=== PATIENT | male | born 1990 | race Caucasian/White ===

== ENCOUNTER 2016-03-25 09:55 | Emergency (ER) | payer SELFPAY ==
[2016-03-25 11:00] VITALS: BP 156/108
--- NOTE | 2016-03-25 11:59 | UC ---
[facility] HPI - HPI Summary HPI Summary: complaint of lower left jaw pain and swelling that started approx 7 days ago lower left gum has been swollen occaiosnal pain in back teeth denies fever took some aleve for pain with some relief left ear feels pressurizied an d intetrmittently painful - History of Current Complaint Chief Complaint: UCGeneralIllness Stated Complaint: SWOLLEN JAW EAR PAIN Time Seen by Provider: 03/25/16 11:53 Hx Obtained From: Patient - Allergies/Home Medications Allergies/Adverse Reactions: Allergies Allergy/AdvReac Type Severity Reaction Status Date / Time No Known Allergies Allergy Verified 03/25/16 11:00 PMH/Surg Hx/FS Hx/Imm Hx Previously Healthy: Yes Endocrine History Of: Denies: Diabetes, Thyroid Disease Cardiovascular History Of: Reports: Deep Vein Thrombosis Denies: Cardiac Disorders, Hypertension Respiratory History Of: Denies: COPD, Asthma GI/ History Of: Denies: Ulcer - Surgical History Surgical History: Yes Surgery Procedure, Year, and Place: adenoids removed - Family History Known Family History: Negative: Cardiac Disease, Hypertension, Diabetes - Social History Occupation: Employed Full-time Alcohol Use: Occasionally Substance Use Type: None Smoking Status (MU): Never Smoked Tobacco Review of Systems Constitutional: Negative, Fever Eyes: Negative ENT: Dental Pain Respiratory: Negative Cardiovascular: Negative Gastrointestinal: Negative Genitourinary: Negative Motor: Negative Neurovascular: Negative Musculoskeletal: Negative Neurological: Negative Psychological: Negative All Other Systems Reviewed And Are Negative: Yes Physical Exam Triage Information Reviewed: Yes Appearance: No Pain Distress, Well-Nourished Vital Signs: Initial Vital Signs Temp 97.9 F 03/25/16 10:55 Pulse 96 03/25/16 10:55 Resp 20 03/25/16 10:55 BP 156/108 03/25/16 10:55 Pulse Ox 99 03/25/16 10:55 Vital Signs Reviewed: Yes Eyes: Positive: Conjunctiva Clear ENT: Positive: Pharynx normal, TMs normal. Negative: Nasal congestion Dental: Positive: Abscess @ - between ,18 Neck: Positive: No Lymphadenopathy Respiratory: Positive: Lungs clear, Normal breath sounds, No respiratory distress Cardiovascular: Positive: RRR, No Murmur Neurological: Positive: Alert Psychological Exam: Normal Skin Exam: Normal Dental Complaint Course/Dx - Course Course Of Treatment: exam completed - Differential Dx/Diagnosis Differential Diagnosis/Dx: Dental Abscess, Dental Caries, Fractured Tooth Provider Diagnoses: dental abscess- 18,17, elevated blood pressure Discharge - Discharge Plan Condition: Stable Disposition: HOME Prescriptions: Amoxicillin CAP* 500 mg PO Q12H #20 cap Patient Education Materials: Dental Abscess (ED), Hypertension (ED) Referrals: Kartik Brito MD [Primary Care Provider] - Additional Instructions: please call Dr Collins to discuss your elevated blood pressure Please take antibiotic as directed. Increase fluids and rest Take acetaminophen or ibuprofen for fever or pain please call dentist for followup care. Please review your discharge instructions. If your symptoms do not improve please call your primary care provider or return to urgent care.
== END 2016-03-25 12:05 | disposition home or self-care (01) ==
LOC: UCEAST 09:55
DX: K04.7 Periapical abscess without sinus (principal); I10 Essential (primary) hypertension
CPT/HCPCS: 99212; G0463

== ENCOUNTER 2017-04-01 17:35 | Emergency (ER) | payer SELFPAY ==
--- NOTE | 2017-04-01 19:02 | UC ---
Ear Complaint HPI - HPI Summary HPI Summary: left ear feels clogged tried to flush it himself- - History of Current Complaint Chief Complaint: UCEar Stated Complaint: EAR COMPLAINT Time Seen by Provider: 04/01/17 18:11 Hx Obtained From: Patient Onset/Duration: Gradual Onset, Lasting Days, Still Present Severity Initially: Moderate Severity Currently: Moderate Associated Signs/Symptoms: Positive: Hearing Loss - Allergies/Home Medications Allergies/Adverse Reactions: Allergies Allergy/AdvReac Type Severity Reaction Status Date / Time No Known Allergies Allergy Verified 04/01/17 17:49 PMH/Surg Hx/FS Hx/Imm Hx Previously Healthy: Yes - Surgical History Surgical History: Yes Surgery Procedure, Year, and Place: adenoids removed - Family History Known Family History: Negative: Cardiac Disease, Hypertension, Diabetes - Social History Occupation: Employed Full-time Lives: With Family Alcohol Use: Occasionally Substance Use Type: None Smoking Status (MU): Never Smoked Tobacco Review of Systems Constitutional: Negative Skin: Negative Eyes: Negative ENT: Negative, Ear Ache - left Respiratory: Negative Cardiovascular: Negative Gastrointestinal: Negative Genitourinary: Negative Motor: Negative Neurovascular: Negative Musculoskeletal: Negative Neurological: Negative Psychological: Negative Is Patient Immunocompromised?: No All Other Systems Reviewed And Are Negative: Yes Physical Exam Triage Information Reviewed: Yes Appearance: Well-Appearing, No Pain Distress, Well-Nourished Vital Signs: Initial Vital Signs Temp 97.0 F 04/01/17 17:44 Pulse 105 04/01/17 17:44 Resp 16 04/01/17 17:44 Pulse Ox 100 04/01/17 17:44 Vital Signs Reviewed: Yes Eye Exam: Normal Eyes: Positive: Conjunctiva Clear ENT Exam: Normal ENT: Positive: Normal ENT inspection, Hearing grossly normal, Pharynx normal, TMs normal - right, Other - left ear with cerumen impaction. Negative: Nasal congestion, Tonsillar swelling, Tonsillar exudate, Trismus, Muffled voice, Hoarse voice, Dental tenderness, Sinus tenderness Dental Exam: Normal Neck exam: Normal Neck: Positive: Supple, Nontender Respiratory Exam: Normal Respiratory: Positive: Chest non-tender, No respiratory distress, No accessory muscle use Cardiovascular Exam: Normal Cardiovascular: Positive: RRR, Brisk Capillary Refill Musculoskeletal Exam: Normal Musculoskeletal: Positive: Strength Intact, ROM Intact, No Edema Neurological Exam: Normal Neurological: Positive: Alert, Muscle Tone Normal Psychological Exam: Normal Skin Exam: Normal Re-Evaluation - Re-Evaluation First Eval Change: Improved - ear flushed by rn-TM WNL after flushing Ear Complaint Course/Dx - Course Course Of Treatment: Avoid soap and q tips in ears follow with pcp prn - Differential Dx/Diagnosis Provider Diagnoses: left cerumen impaction resolved Discharge - Discharge Plan Condition: Stable Disposition: HOME Patient Education Materials: Cerumen Impaction (ED), Hypertension (ED) Referrals: Kartik Brito MD [Primary Care Provider] - 2 Weeks
[2017-04-01 19:05] VITALS: BP 141/98
== END 2017-04-01 19:10 | disposition home or self-care (01) ==
LOC: UCEAST 17:35
DX: H61.22 Impacted cerumen, left ear (principal)
CPT/HCPCS: 69210; 99211; 99212; G0463

== ENCOUNTER 2017-08-26 13:44 | Emergency (ER) | payer SELFPAY ==
[2017-08-26 13:53] VITALS: BP 153/103
--- NOTE | 2017-08-26 15:08 | UC ---
General HPI - HPI Summary HPI Summary: PT HERE REQUESTING LYME TESTING. HAD A TICK BITE BACK OF RIGHT LEG ABOUT A MONTH AGO. PAST 5 DAYS HAS BEEN FEELING FATIGUED AND HAS HAD NIGHT SWEATS, SUBJECTIVE FEVER, MARRERO, DIFFUSE JOINT/MUSCLE ACHES AND INTERMITTENT NAUSEA. - History of Current Complaint Chief Complaint: UCGeneralIllness Stated Complaint: JOINT PAIN Time Seen by Provider: 08/26/17 14:50 Hx Obtained From: Patient Onset/Duration: Gradual Onset, Lasting Days, Still Present Timing: Constant Onset Severity: Moderate Current Severity: Moderate Pain Intensity: 5 - Allergy/Home Medications Allergies/Adverse Reactions: Allergies Allergy/AdvReac Type Severity Reaction Status Date / Time No Known Allergies Allergy Verified 08/26/17 13:54 Home Medications: Home Medications Acetaminophen TAB* [Tylenol TAB*] 1,000 mg PO Q4H PRN 08/26/17 [History Confirmed 08/26/17] PMH/Surg Hx/FS Hx/Imm Hx Previously Healthy: Yes - Surgical History Surgical History: Yes Surgery Procedure, Year, and Place: adenoids removed - Family History Known Family History: Negative: Cardiac Disease, Hypertension, Diabetes - Social History Alcohol Use: Occasionally Substance Use Type: None Smoking Status (MU): Never Smoked Tobacco Review of Systems Constitutional: Fever, Chills, Fatigue Respiratory: Negative Cardiovascular: Negative Gastrointestinal: Nausea Musculoskeletal: Arthralgia, Myalgia Neurological: Headache All Other Systems Reviewed And Are Negative: Yes Physical Exam Triage Information Reviewed: Yes Appearance: Well-Appearing, No Pain Distress, Well-Nourished Vital Signs: Initial Vital Signs Temp 98.7 F 08/26/17 13:48 Pulse 104 08/26/17 13:48 Resp 16 08/26/17 13:48 BP 153/103 08/26/17 13:48 Pulse Ox 98 08/26/17 13:48 Vital Signs Reviewed: Yes Eyes: Positive: Conjunctiva Clear ENT: Positive: Hearing grossly normal, Pharynx normal, TMs normal Neck: Positive: Supple, Nontender, No Lymphadenopathy Respiratory Exam: Normal Cardiovascular Exam: Normal Abdomen Description: Positive: Soft Musculoskeletal: Positive: ROM Intact, No Edema Neurological: Positive: Alert Psychological: Positive: Age Appropriate Behavior Skin: Negative: rashes Course/Dx - Differential Dx - Multi-Symptom Provider Diagnoses: MALAISE/ARTHRALGIA/MYALGIA Discharge - Sign-Out/Discharge Documenting (check all that apply): Discharge/Admit/Transfer - Discharge Plan Condition: Stable Disposition: HOME Patient Education Materials: Fatigue (ED) Referrals: Kartik Brito MD [Primary Care Provider] - 2 Weeks Additional Instructions: POSSIBLE LYME DISEASE: You are suspected of having Lyme disease. Further testing may be necessary to confirm the diagnosis. Lyme disease is an infection spread through the bite of a deer tick. Symptoms include rash, fever, fatigue, joint swelling, and aches. Lyme disease can be treated with antibiotics. It is important that you take the entire course of medication. Call the physician if you develop severe headache, stiff neck, paralysis or "drooping" of either side of the face, or a worsening of any other symptom. The majority of patients with early Lyme disease who receive appropriate antibiotic therapy have complete resolution of the signs and symptoms of infection within 20 days and, in one trial, erythema migrans (the rash) and its associated symptoms resolved in a mean of five to six days. Patients who are more systemically ill at the beginning of treatment may take longer to recover. Some patients have mild subjective symptoms, such as headache, musculoskeletal pain, arthralgia, or fatigue, that persist for weeks to months after treatment. These subjective findings often resolve spontaneously, usually within six months , without further antibiotic therapy; they are not due to ongoing active Lyme disease. Almost all patients who have a satisfactory response to antibiotic therapy do well over the laborer prestressed concrete. LABS DRAWN TODAY INCLUDE BLOOD COUNT, METABOLIC PANEL AND LYME SEROLOGY. WE WILL CALL YOU WITH ANY ABNORMAL RESULTS. YOU HAVE OPTED TO HOLD OFF ON TREATMENT UNTIL RESULTS RETURN WHICH IS REASONABLE. YOUR BLOOD PRESSURE WAS ELEVATED TODAY (153/103). THIS MAY BE DUE TO YOUR ACUTE CONDITION. MONITOR AND FOLLOW-UP WITH YOUR PCP WITHIN 4 WEEKS IF IT HAS NOT RETURNED TO NORMAL. - Billing Disposition and Condition Condition: STABLE Disposition: Home
[2017-08-26 18:52] LABS: ABS Basophils 0.1 10^3/ul (0-0.2); ABS Eosinophils 0.1 10^3/ul (0-0.6); ABS Lymphocytes 1.3 10^3/ul (1.0-4.8); ABS Monocytes 1.3 10^3/ul (0-0.8); ABS Neutrophils 6.6 10^3/ul (1.5-7.7); ABS Nucleated RBC 0 10^3/ul; Eosinophil % 0.9 % (0-6); Hematocrit 48 % (42-52); Hemoglobin 16.8 g/dl (14.0-18.0); Mean Corpuscular HGB Conc 35 g/dl (31-36); Mean Corpuscular Hemoglobin 32 pg (27-31); Mean Corpuscular Volume 92 fL (80-94); Mean Platelet Volume 7.4 um3 (7.4-10.4); Nucleated Red Blood Cells % 0.1; Platelet Count 265 10^3/ul (150-450); Red Blood Count 5.29 10^6/ul (4.0-5.4); Red Cell Distribution Width 13 % (10.5-15); White Blood Count 9.4 10^3/ul (3.5-10.8)
== END 2017-08-26 15:19 | disposition home or self-care (01) ==
LOC: UCEAST 13:44
DX: R53.81 Other malaise (principal); M25.50 Pain in unspecified joint; M79.1 Myalgia
CPT/HCPCS: 36415; 80053; 85025; 86618; 99211; G0463

== ENCOUNTER 2018-05-25 09:12 | Emergency (ER) | payer MEDICAID, OTHER ==
--- NOTE | 2018-05-25 10:21 | ED ---
Abdominal Pain/Male - HPI Summary HPI Summary: A 27 y/o male presents to [facility] with a chief complaint of abdominal pain since 23:00 05/24/18 of 05/25/18. He reports that from 05/20/18-05/23/18 the patient had nausea and vomiting. He claims that on 05/24/18 he felt better and started to eat normally again, but since 23:00 05/25/18 he has had a constant sharp pain. At triage he rated his pain as a 6/10 in severity. He claims that he has not been able to pass gas and reports one episode of vomiting the night of 05/24 and another episode of vomiting the morning of 05/25/18. He claims that he just recently had high blood pressure and started taking 20mg Lisinopril. He reports currently feeling nauseous. He claims that his HR is usually around 100bpm. Vital signs while in room HR: 121 bpm, O2 Sat: 100, BP: 117/71. - History of Current Complaint Chief Complaint: EDAbdPain Stated Complaint: STOMACH PAINS Time Seen by Provider: 05/25/18 09:34 Hx Obtained From: Patient Onset/Duration: Sudden Onset, Lasting Hours, Still Present Timing: Constant, Lasting Hours Severity Initially: Moderate Severity Currently: Moderate Pain Intensity: 6 Pain Scale Used: 0-10 Numeric Location: Umbilical Radiates: No Character: Sharp Aggravating Factor(s): Nothing Alleviating Factor(s): Nothing Associated Signs And Symptoms: Positive: Nausea, Vomiting, Other - Positive: unable to pass gas. Negative: Fever - Allergies/Home Medications Allergies/Adverse Reactions: Allergies Allergy/AdvReac Type Severity Reaction Status Date / Time No Known Allergies Allergy Verified 05/25/18 09:20 Home Medications: Home Medications Lisinopril/HCTZ 20/12.5(NF) [Zestoretic 20/12.5(NF)] 1 tab PO DAILY 05/25/18 [ History Confirmed 05/25/18] PMH/Surg Hx/FS Hx/Imm Hx Endocrine/Hematology History: Denies: Hx Diabetes, Hx Thyroid Disease Cardiovascular History: Reports: Hx Deep Vein Thrombosis Denies: Hx Hypertension Respiratory History: Denies: Hx Asthma, Hx Chronic Obstructive Pulmonary Disease (COPD) GI History: Denies: Hx Ulcer - Surgical History Surgery Procedure, Year, and Place: adenoids removed Infectious Disease History: No Infectious Disease History: Denies: Hx Clostridium Difficile, Hx Hepatitis, Hx Human Immunodeficiency Virus (HIV), Hx of Known/Suspected MRSA, Hx Shingles, Hx Tuberculosis, History Other Infectious Disease, Traveled Outside the [place] in Last 30 Days - Family History Known Family History: Negative: Cardiac Disease, Hypertension, Diabetes - Social History Alcohol Use: Occasionally Substance Use Type: Reports: None Smoking Status (MU): Never Smoked Tobacco Review of Systems Negative: Fever Positive: Abdominal Pain, Vomiting, Nausea, Other - Positive: unable to pass gas All Other Systems Reviewed And Are Negative: Yes Physical Exam - Summary Physical Exam Summary: Appearance: The patient is well-nourished in no acute distress and in no acute pain. Skin: The skin is warm and dry and skin color reflects adequate perfusion. HEENT: The head is normocephalic and atraumatic. The pupils are equal and reactive. The conjunctivae are clear and without drainage. Nares are patent and without drainage. Mouth reveals moist mucous membranes and the throat is without erythema and exudate. The external ears are intact. The ear canals are patent and without drainage. The tympanic membranes are intact. Neck: The neck is supple with full range of motion and non-tender. There are no carotid bruits. There is no neck vein distension. Respiratory: Chest is non-tender. Lungs are clear to auscultation and breath sounds are symmetrical and equal. Cardiovascular: Heart is regular rate and rhythm. There is no murmur or rub auscultated. There is no peripheral edema and pulses are symmetrical and equal. Abdomen: Mild periumbilica tenderness, no rebound or guarding. There are normal bowel sounds heard in all four quadrants and there is no organomegaly palpated. Musculoskeletal: There is no back tenderness noted. Extremities are non-tender with full range of motion. There is good capillary refill. There is no peripheral edema or calf tenderness elicited. Neurological: Patient is alert and oriented to person, place and time. The patient has symmetrical motor strength in all four extremities. Cranial nerves are grossly intact. Deep tendon reflexes are symmetrical and equal in all four extremities. Psychiatric: The patient has an appropriate affect and does not exhibit any anxiety or depression. Triage Information Reviewed: Yes Vital Signs On Initial Exam: Initial Vitals Temp Pulse Resp BP Pulse Ox 98.4 F 132 14 114/82 99 05/25/18 09:19 05/25/18 09:19 05/25/18 09:19 05/25/18 09:19 05/25/18 09:19 Vital Signs Reviewed: Yes Diagnostics - Vital Signs Vital Signs Temp Pulse Resp BP Pulse Ox 05/25/18 09:19 98.4 F 132 14 114/82 99 - Laboratory Result Diagrams: 05/25/18 10:28 05/25/18 10:28 Lab Statement: Any lab studies that have been ordered have been reviewed, and results considered in the medical decision making process. - CT abdomen/pelvis CT Interpretation Completed By: Radiologist Summary of CT Findings: No obstructive uropathy. No evidence of cholelithiasis or biliary duct dilatation. Normal appendix is documented. ED physician has reviewed this imaging report. Re-Evaluation - Re-Evaluation First Eval Re-Evaluation Time: 13:35 Change: Improved Comment: Patient is feeling better and will be discharged. Abdominal Pain Male Course/Dx - Course Course Of Treatment: Mr. Hogan presented to the emergency department with a history of several days of GI symptoms of nausea vomiting and diarrhea. On Thursday he which was yesterday he felt better and ate normally. Today he is feeling abdominal pain and some nausea. On arrival here he was nontoxic in appearance however he was tachycardic in the 120s. He tells me that his normal heart rate is about 100. He was given IV fluids while a workup was obtained including CT scan. There was nothing remarkable aside from a very slightly elevated white blood cell count of 17,000. His exam showed only mild periumbilical tenderness. I warned him that he may be in the early stages of something like appendicitis but that there is no evidence for that this point. I recommended close follow-up and I expect that he will improve on his own in the next day or so. - Diagnoses Provider Diagnoses: Abdominal pain Discharge - Sign-Out/Discharge Documenting (check all that apply): Patient Departure - DC Patient Received Moderate/Deep Sedation with Procedure: No - Discharge Plan Condition: Stable Disposition: HOME Patient Education Materials: Abdominal Pain (ED) Referrals: Kartik Brito MD [Primary Care Provider] - (in 2 days if abdominal pain is not resolved) Additional Instructions: Return to the ED if you experience any new or worsening symptoms. - Billing Disposition and Condition Condition: STABLE Disposition: Home - Attestation Statements Document Initiated by Scribe: Yes Documenting Scribe: Rafa Burkett Provider For Whom Scribe is Documenting (Include Credential): Juanito Godfrey MD Scribe Attestation: I, Rafa Burkett, scribed for Juanito Godfrey MD on 05/25/18 at 1541. Scribe Documentation Reviewed: Yes Provider Attestation: The documentation as recorded by the Rafa carlson accurately reflects the service I personally performed and the decisions made by me, Juanito Godfrey MD Status of Scribe Document: Viewed
[2018-05-25 10:40] LABS: ABS Basophils 0 10^3/ul (0-0.2); ABS Eosinophils 0 10^3/ul (0-0.6); ABS Lymphocytes 0.6 10^3/ul (1.0-4.8); ABS Monocytes 0.7 10^3/ul (0-0.8); ABS Neutrophils 16.5 10^3/ul (1.5-7.7); ABS Nucleated RBC 0.1 10^3/ul; Eosinophil % 0.3 %; Hematocrit 46 % (42-52); Hemoglobin 15.8 g/dl (14.0-18.0); Lymphocyte % 3.4 %; Mean Corpuscular HGB Conc 35 g/dl (31-36); Mean Corpuscular Hemoglobin 32 pg (27-31); Mean Corpuscular Volume 91 fL (80-94); Mean Platelet Volume 6.7 fL (7.4-10.4); Nucleated Red Blood Cells % 0.3; Platelet Count 347 10^3/ul (150-450); Red Cell Distribution Width 13 % (10.5-15); White Blood Count 17.9 10^3/ul (3.5-10.8)
[2018-05-25 10:46] LABS: Urine Appearance Cloudy; Urine Bilirubin Negative (Negative); Urine Blood Negative (Negative); Urine Color Yellow; Urine Glucose Negative (Negative); Urine Ketones Negative (Negative); Urine Nitrite Negative (Negative); Urine Protein Negative (Negative); Urine Urobilinogen Negative (Negative)
[2018-05-25 10:53] LABS: Albumin 4.6 g/dL (3.2-5.2); Albumin/Globulin Ratio 1.5 (1-3); C Reactive Protein 12.32 mg/L (<8.01); Calcium 9.2 mg/dL (8.6-10.3); EGFR African American 92.8 (>60); EGFR Non-African American 76.7 (>60); Potassium 4.3 mmol/L (3.5-5.0); Total Bilirubin 0.5 mg/dL (0.2-1.0); Total Protein 7.6 g/dL (6.4-8.9)
[2018-05-25] MEDS ORDERED: Ondansetron INJ* 2 MG/ML VIAL IV ONE (11:49)
[2018-05-25] MEDS ORDERED: NS 0.9% 1000 ML** 1,000 ML IV ONE (11:49)
[2018-05-25 13:53] VITALS: BP 112/64
== END 2018-05-25 13:52 | disposition home or self-care (01) ==
LOC: ED 09:12
DX: R10.33 Periumbilical pain (principal); R11.2 Nausea with vomiting, unspecified; R19.7 Diarrhea, unspecified
CPT/HCPCS: 36415; 74176; 80053; 81003; 83605; 83690; 85025; 86140; 96374; 99282; J2405

== ENCOUNTER 2018-11-23 15:26 | Emergency (ER) | payer OTHER ==
[2018-11-23 15:40] VITALS: BP 129/81
--- NOTE | 2018-11-23 15:48 | UC ---
Knee Pain HPI - HPI Summary HPI Summary: 28 yo male with right knee injury which occurred about 5-6 days ago foot planted and knee twisted swelling almost immediately unable to fully extend no hx prior injury - History of Current Complaint Chief Complaint: UCLowerExtremity Stated Complaint: RT KNEE INJURY Time Seen by Provider: 11/23/18 15:36 Onset/Duration: Sudden Onset, Lasting Days Severity Initially: Severe Severity Currently: Mild Pain Intensity: 3 Pain Scale Used: 0-10 Numeric Character: Dull, Aching Aggravating Factor(s): Movement, Weight Bearing, Prolonged Standing Alleviating Factor(s): Rest Associated Signs And Symptoms: Positive: Swelling Able to Bear Weight: Yes Legs: 1 - large effusion 2 - MCL tenderness - Allergies/Home Medications Allergies/Adverse Reactions: Allergies Allergy/AdvReac Type Severity Reaction Status Date / Time No Known Allergies Allergy Verified 11/23/18 15:40 Home Medications: Home Medications Acetaminophen TAB* [Tylenol TAB*] 650 mg PO Q4H PRN 11/23/18 [History Confirmed 11/23/18] PMH/Surg Hx/FS Hx/Imm Hx Previously Healthy: Yes Cardiovascular History: Hypertension - Surgical History Surgical History: Yes Surgery Procedure, Year, and Place: adenoids removed - Family History Known Family History: Positive: Hypertension Negative: Cardiac Disease, Diabetes - Social History Alcohol Use: Occasionally Substance Use Type: None Smoking Status (MU): Never Smoked Tobacco Review of Systems All Other Systems Reviewed And Are Negative: Yes Constitutional: Positive: Negative Skin: Positive: Negative Eyes: Positive: Negative ENT: Positive: Negative Respiratory: Positive: Negative Cardiovascular: Positive: Negative Gastrointestinal: Positive: Negative Genitourinary: Positive: Negative Motor: Positive: Negative Neurovascular: Positive: Negative Musculoskeletal: Positive: Arthralgia - right knee Neurological: Positive: Negative Psychological: Positive: Negative Physical Exam Vital Signs: Initial Vital Signs Temp 97.7 F 11/23/18 15:36 Pulse 95 11/23/18 15:36 Resp 16 11/23/18 15:36 BP 129/81 11/23/18 15:36 Pulse Ox 100 11/23/18 15:36 Diagnostics - Radiology No standard instances Radiology Interpretation Completed By: Radiologist Summary of Radiographic Findings: R knee: neg Knee Pain Course/Dx - Differential Dx/Diagnosis Provider Diagnosis: Internal derangement of right knee Discharge ED - Sign-Out/Discharge Documenting (check all that apply): Patient Departure All imaging exams completed and their final reports reviewed: Yes - Discharge Plan Condition: Stable Disposition: HOME Patient Education Materials: Swollen Knee Joint (ED), Knee Immobilizer (ED) Referrals: Reed Quintana MD [Medical Doctor] - As Soon As Possible Additional Instructions: I am concerned you have an ACL tear as well as MCL injury of your knee elevate ice aleve for pain use your crutches knee immobilizer when up see orthopedist EDGARD - Billing Disposition and Condition Condition: STABLE Disposition: Home
== END 2018-11-23 16:27 | disposition home or self-care (01) ==
LOC: UCEAST 15:26
DX: M23.91 Unspecified internal derangement of right knee (principal); I10 Essential (primary) hypertension
CPT/HCPCS: 99212; G0463

== ENCOUNTER 2019-04-13 05:36 | Day surgery (SDC) | payer OTHER ==
[~2019-04-13 05:36] MED LIST: Buffered Lidocaine 1% SYRIN* 1 ML/SYRINGE INTRADERM ONE
[2019-04-13] MEDS ORDERED: Dexamethasone IV* 4 MG/ML 1 ML (4 MG) IV SLOW PU ONE (06:00)
[2019-04-13] MEDS ORDERED: Lactated Ringers 1000 ML Bag* 1,000 ML IV SCH (06:00)
[2019-04-13] MEDS ORDERED: Famotidine IV* 10 MG/ML 2 ML (20 mg) IV ONE (06:00)
[2019-04-13] MEDS ORDERED: Famotidine IV* 10 MG/ML 2 ML (20 mg) ONE (06:08)
[2019-04-13] MEDS ORDERED: ceFAZolin 2 GM PREMIX in ORs 2 GM/50 ML BAG ONE (06:08)
[2019-04-13] MEDS ORDERED: Dexamethasone IV* 4 MG/ML 1 ML (4 MG) ONE (06:08)
[2019-04-13] MEDS ORDERED: Buffered Lidocaine 1% SYRIN* 1 ML/SYRINGE INTRADERM ONE (06:08)
[2019-04-13] MEDS ORDERED: EPINEPHRINE 1 MG/ML 1 ML VIAL ONE (07:09)
[2019-04-13] MEDS ORDERED: Bupivacaine 0.5%* 50 ML MDV VIAL ONE (07:10)
[2019-04-13] MEDS ORDERED: fentaNYL* 50 MCG/ML 5 ML VIAL (250 MCG VIAL) ONE (07:21)
[2019-04-13] MEDS ORDERED: Atracurium* 10 MG/ML 10 ML VIAL ONE (07:22)
[2019-04-13] MEDS ORDERED: Lidocaine 2% PF * 5 ML VIAL ONE (07:22)
[2019-04-13] MEDS ORDERED: Propofol* 10 MG/ML 20 ML BTL ONE (07:22)
[2019-04-13] MEDS ORDERED: Midazolam* 1 MG/ML 5 ML VIAL (5 MG) ONE (07:22)
[2019-04-13] MEDS ORDERED: Ondansetron INJ* 2 MG/ML VIAL ONE (07:22)
[2019-04-13] MEDS ORDERED: Ketorolac INJ* 30 MG/ML 1 ML VIAL ONE (07:22)
[2019-04-13] MEDS ORDERED: fentaNYL* 50 MCG/ML 2 ML VIAL (100 MCG VIAL) IV PRN (09:27)
[2019-04-13] MEDS ORDERED: oxyCODONE/Acetamin 5/325 MG* TAB PO PRN (09:27)
[2019-04-13] MEDS ORDERED: Ondansetron INJ* 2 MG/ML VIAL IV PRN (09:27)
[2019-04-13] MEDS ORDERED: HYDROmorphone INJ1* 1 MG/ML SYRINGE IV PRN (09:27)
[2019-04-13] MEDS ORDERED: Scopolamine 1.5 mg* PATCH TRANSDERM PRN (09:27)
[2019-04-13] MEDS ORDERED: DiMENhydriNATE IV* 50 MG/ML VIAL IV PUSH PRN (09:27)
[2019-04-13] MEDS ORDERED: Naloxone* 0.4 MG/ML 1 ML VIAL IV PRN (09:27)
[2019-04-13] MEDS ORDERED: fentaNYL* 50 MCG/ML 2 ML VIAL (100 MCG VIAL) ONE (10:05)
[2019-04-13 11:46] VITALS: BP 115/82
--- NOTE | 2019-04-15 02:47 | OP ---
DATE OF OPERATION: 04/13/19 - [facility] DATE OF : 86. SURGEON: Reed Quintana MD. MANAGER CARDIAC CATH: DANYELLE Peck. A physician golf player assistant was required for the length of the procedure, for assistance with patient positioning, retraction, instrumentation and closure. ANESTHESIOLOGIST: Dr. Costa. ANESTHESIA: General anesthesia, local anesthesia using Marcaine 0.5% without epinephrine. PRE-OP DIAGNOSIS: Right knee anterior cruciate ligament tear. POST-OP DIAGNOSIS: Right knee anterior cruciate ligament tear. OPERATIVE PROCEDURE: Right knee arthroscopic ACL reconstruction with quadriceps autograft. ANTIBIOTICS: Ancef 2 g IV. IV FLUIDS: See anesthesia note. SULU-FF-PCLJ TIME: 153 minutes. TOURNIQUET TIME: 130 minutes at a tourniquet pressure of 300 mmHg, right proximal thigh. I note that the tourniquet was dropped for well over 15 minutes making me comfortable surpassing 120 minutes total. RADIATION EXPOSURE: Mini C-arm used for several pictures, radiographs to confirm proximal button position on the femur. SPECIMEN: None. IMPLANTS: Arthrex TightRope buttons, on the femur and on the tibia. ABS button on the tibia. COMPLICATIONS: None. ESTIMATED BLOOD LOSS: Minimal. INDICATIONS FOR PROCEDURE: The patient is a 28-year-old man, who works in construction and on boats, who injured his right knee on 11/19/18. The patient met with me in clinic. We discussed the diagnosis. We discussed nonoperative and operative treatment. We discussed a wide range of graft options. Initially, we discussed [id number], but opted against it given the kneeling that the patient does often at his job. We were strongly considering hamstring, but ultimately chose a quadriceps autograft. Discussed risks and potential complications of surgery. DESCRIPTION OF PROCEDURE: In preoperative holding, the patient signed a written consent. Operative extremity was marked in the preoperative holding. The patient was taken back to the operating room and placed supine on the operating room table. Sedated and intubated. [place] bump placed under the right hemipelvis. A lateral post placed on the table. Right lower extremity was prepped and draped. Surgical time-out performed. Esmarch was applied and the tourniquet was elevated. I established anterolateral knee arthroscopy portal. I performed a diagnostic arthroscopy. No articular cartilage injury. No meniscus tear. Confirmed ACL injury. I assembled a [facility] knee positioner. I flexed the knee to 90 degrees. Proceeded to obtain quadriceps autograft. Central incision, longitudinal, anterior, skin. Dissected down to quadriceps tendon. I used a 10-mm double blade knife to extract the tendon. Extracted a graft that was 7.5 cm as well. Capsule was violated proximally with a small tiny several mm hole. After removing graft, closed quadriceps tendon defect with simple stitches using 0 Ethibond and 0 Vicryl. Next, closed subcutaneous tissue with buried simple stitches using Vicryl 2-0 suture and skin closure with running stitch using nylon 3-0 suture. Dropped tourniquet. I moved to the back table. Prepared the graft using a FiberTak suture on either end of the graft. Contoured my graft to make it 7 cm long. Sized my graft diameter and kept it under tension on the back table. Returned to knee. We elevated tourniquet. Performed a notchplasty with an arthroscopic bur. I created anteromedial and accessory anteromedial portal. Using antegrade reaming technique, and standard anatomic markers on the femur, I drilled a 9.5-mm diameter femoral tunnel approximately 25 mm in length. That was performed in knee hyperflexion. I next flexed the knee to 90 degrees. Using standard anatomic landmarks, placed my Beath pin using a tibial guide set to 57.5 degrees. Drilled 10.5 mm tibial tunnel, that was approximately 40 mm in length. Inserted a passport cannula. Passing sutures. Placed the graft in the femur and then in the tibia. There was some delay in getting the button to pass through the drill hole in the femur. Decided to do with a vagary of the anterograde versus retrograde reaming of the femur, but did cause a delay time caputo. We flipped the button. Mini C-arm was brought in and confirmed adequate position of the button. I pulled the graft up into the femur and down into the tibia. I tightened the graft with the knee fully extended and a posterior drawer applied. I stuck the arthroscope in the knee and confirmed excellent position of the graft and tartness of the graft. The knee had no laxity with Betsy's and anterior drawer maneuver. I tied knots on the buttons both proximally and distally. Cut suture ends. Irrigation of wounds. Distal skin incision. Fascia was closed over the ABS button with figure-of- eight stitches using Vicryl 0 suture. Subcutaneous tissue and skin incisions was closed with buried simple stitches using Vicryl 2.0 suture. All skin incisions closed with nylon 3.0 suture either [id number] or 12 stitches or running stitches. Local anesthesia was injected at all skin incisions especially about the quadriceps tendon. Xeroform, 4x4's, ABDs, sterile Webril, Larry bandage from foot to proximal groin. Cooling unit. Knee brace locked in extension. The patient was awakened, extubated, and transferred to the PACU. DISPOSITION: The patient will be on aspirin b.i.d. for 2 weeks postoperative and antibiotics for 5 days postoperatively as prophylaxis of infection. Percocet as needed for pain control. The patient will start physical therapy immediately. He is weightbearing as tolerated in the knee brace and with crutches. He will follow up with me in 10 to 14 days postoperatively. [id number]/CPS #: [id number] YANCY
== END 2019-04-13 12:32 | disposition home or self-care (01) ==
LOC: OR 05:36
PROVIDERS: ATTEND Orthopaedic Surgery
DX: S83.511A Sprain of anterior cruciate ligament of right knee, initial encounter (principal); X50.0XXA Overexertion from strenuous movement or load, initial encounter; Y92.89 Other specified places as the place of occurrence of the external cause; I10 Essential (primary) hypertension
CPT/HCPCS: 76000; C1713; J0690; J1100; J1885; J2250; J2405; J2704; J3010; J3490